=== PATIENT | female | born 1990 | race Caucasian/White ===

== ENCOUNTER 2021-04-26 23:04 | Emergency (ER) | payer MEDICARE ==
[2021-04-26] MEDS ORDERED: Take Home: Clindamycin HCl 150 MG Cap, 6 Cap Pack PO ONE (23:19)
[2021-04-26] MEDS ORDERED: Clindamycin HCl 150 MG Cap PO ONE (23:21)
--- NOTE | 2021-04-26 23:27 | EDM.PDOC ---
ED HPI GENERAL MEDICAL PROBLEM - General Chief Complaint: ENT Problem Stated Complaint: MOUTH Time Seen by Provider: 04/26/21 23:15 Source of Information: Reports: Patient History Limitations: Reports: No Limitations - History of Present Illness INITIAL COMMENTS - FREE TEXT/NARRATIVE: Patient presents to the ED for dental pain. She has poor dentition due to drug abuse and teeth grinding in the past. She states that a few months ago she sustained dental trauma to the left second molar and has had minimal problems with the tooth since. In the last week it has become painful, a swollen gum was noted a day or so ago and she " popped" the abscess. It did help with the swelling but the pain is intolerable. Taking tylenol, motrin, orajel, anebsol for this. Has not reached out to a dentist, but will next week. living locally with her boyfriend but from [place]. History of cancer in need for further work up for lung nodules. History of narcotic abuse. Does not want pain medications, no allergies to medicaitons - Related Data Home Meds: Home Meds Clindamycin HCl 300 mg PO TID 7 Days #21 capsule 04/26/21 [Rx] Past Medical History Respiratory History: Reports: Other (See Below) (lung nodules in need for oncologic work up) Oncologic (Cancer) History: Reports: Cervix, Ovarian - Past Surgical History Female Surgical History: Reports: Hysterectomy, Salpingo-Oophorectomy (bialteral) Social & Family History - Alcohol Use Alcohol Use Frequency: Rarely - Recreational Drug Use Recreational Drug Use: No Drug Use in Last 12 Months: No Other Recreational Drug Type: history of narcotic addiction ED ROS ENT - Review of Systems Review Of Systems: See Below Constitutional: Reports: No Symptoms. Denies: Fever, Chills, Fatigue HEENT: Reports: Dental Pain. Denies: Nose Pain, Rhinitis, Throat Pain, Throat Swelling, Vision Change Respiratory: Reports: No Symptoms. Denies: Shortness of Breath, Cough Cardiovascular: Reports: No Symptoms. Denies: Chest Pain, Dyspnea on Exertion Endocrine: Reports: No Symptoms GI/Abdominal: Reports: No Symptoms. Denies: Diarrhea, Nausea, Vomiting : Reports: No Symptoms. Denies: Other Musculoskeletal: Reports: No Symptoms. Denies: Neck Pain, Shoulder Pain Skin: Reports: No Symptoms Neurological: Reports: No Symptoms. Denies: Confusion, Dizziness, Headache ED EXAM, ENT - Physical Exam Exam: See Below Exam Limited By: No Limitations General Appearance: Alert, WD/WN, No Apparent Distress Eye Exam: Bilateral Eye: EOMI, Normal Inspection, PERRL Ears: Normal External Exam Nose: Normal Inspection, Normal Mucousa Mouth/Throat: Other (multiple dental caries, fillings and missing teeth. minimal decay noted. tooth in question left upper with dentec in it. no abscess noted. minimal left cheek swelling) Head: Atraumatic Neck: Normal Inspection. No: Lymphadenopathy (L), Lymphadenopathy (R) Respiratory/Chest: No Respiratory Distress, Lungs Clear Cardiovascular: Normal Peripheral Pulses, Regular Rate, Rhythm Course - Orders/Labs/Meds Orders: Active Orders 24 hr Category Date Time Status clindamycin HCL [Cleocin] Med 04/26/21 23:21 Once 300 mg PO ONETIME ONE Medication Orders Clindamycin HCl (Clindamycin Hcl 150 Mg Cap) 300 mg PO ONETIME ONE Stop: 04/26/21 23:22 Meds: Medications Generic Name Dose Route Start Last Admin Trade Name Freq PRN Reason Stop Dose Admin Clindamycin HCl 300 mg 04/26/21 23:21 Clindamycin Hcl 150 Mg Cap PO 04/26/21 23:22 ONETIME ONE Discontinued Medications Generic Name Dose Route Start Last Admin Trade Name Freq PRN Reason Stop Dose Admin Clindamycin HCl 1 packet 04/26/21 23:19 Take Home: Clindamycin Hcl 150 Mg Cap, 6 Cap Pack PO 04/26/21 23:20 ONETIME ONE - Re-Assessments/Exams Free Text/Narrative Re-Assessment/Exam: 04/26/21 23:26 discussed use of sensodyne for pain. limit topicals. she does not want pain medication due to past addiction. Will give po dose of clindamycin here , starter pack for tomorrow due to pharmacy being closed and prescription for rest. Will follow up in [place], no allergies, VSS 04/26/21 23:35 Departure - Departure Time of Disposition: 23:22 Disposition: Home, Self-Care 01 Condition: Fair Clinical Impression: Dental caries - Discharge Information *PRESCRIPTION DRUG MONITORING PROGRAM REVIEWED*: Yes *COPY OF PRESCRIPTION DRUG MONITORING REPORT IN PATIENT HERON: Not Applicable Prescriptions: Clindamycin HCl 300 mg PO TID 7 Days #21 capsule Instructions: Dental Caries, Adult Additional Instructions: Make appointment to follow up with dentist this next week. you were given a dose of clindamycin in the ED. You are given a short supply for tomorrow , two capsules three times a day and then fill prescription for rest of prescription. Use tylenol and motrin alternating for pain. Use sensodyne toothpaste on the tooth to help with pain. Limit the use of Oragel and Anbesol - My Orders Last 24 Hours: My Active Orders 04/26/21 23:21 clindamycin HCL [Cleocin] 300 mg PO ONETIME ONE - Assessment/Plan Last 24 Hours: My Active Orders 04/26/21 23:21 clindamycin HCL [Cleocin] 300 mg PO ONETIME ONE
== END 2021-04-26 23:28 | disposition home or self-care (01) ==
LOC: VM.ED 23:04
DX: K02.9 Dental caries, unspecified (principal)
CPT/HCPCS: 99282; A9270-GY

== ENCOUNTER 2021-07-10 12:19 | Emergency (ER) | payer MEDICARE ==
[2021-07-10] MEDS ORDERED: Amoxicillin/Clavulanate K 875-125 MG Tab PO ONE (12:41)
[2021-07-10] MEDS ORDERED: Take Home: traMADol 50 MG, 4 Tab Pack PO ONE (12:42)
[2021-07-10] MEDS ORDERED: Take Home: Amoxicillin/Clavulanate K 875-125 MG Tab, 2 Tab Pack PO ONE (12:44)
--- NOTE | 2021-07-10 12:46 | EDM.PDOC ---
ED HPI GENERAL MEDICAL PROBLEM - General Time Seen by Provider: 07/10/21 12:20 Source of Information: Reports: Patient History Limitations: Reports: No Limitations - History of Present Illness INITIAL COMMENTS - FREE TEXT/NARRATIVE: Emergency department today with complaints of swelling and a dental infection on the left upper aspect of her mouth. This patient has a longstanding history of dental caries. She has not seen a dentist for this. She was seen in the emergency department a couple of months ago with a dental infection in the same area. She was on clindamycin at this time with resolution. She notes that over the past couple of days she has had increased pain in the left upper aspect of the jaw as well as swelling. She has no difficulty breathing. No difficulty swallowing. No fever no chills. She has not contacted a dentist. - Related Data Allergies Allergy/AdvReac Type Severity Reaction Status Date / Time No Known Allergies Allergy Verified 07/10/21 13:02 Home Meds: Home Meds Amoxicillin/Potassium Clav [Augmentin 875-125 Tablet] 1 each PO BID #14 tablet 07/10/21 [Rx] Past Medical History Respiratory History: Reports: Other (See Below) (lung nodules in need for oncologic work up) Oncologic (Cancer) History: Reports: Cervix, Ovarian - Past Surgical History Female Surgical History: Reports: Hysterectomy, Salpingo-Oophorectomy (bialteral) ED ROS ENT - Review of Systems Review Of Systems: Comprehensive ROS is negative, except as noted in HPI. ED EXAM, ENT - Physical Exam Exam: See Below Exam Limited By: No Limitations General Appearance: Alert, WD/WN, No Apparent Distress Eye Exam: Bilateral Eye: EOMI, PERRL Ears: Normal External Exam, Normal TMs Nose: Normal Inspection Mouth/Throat: Dental Pain, Other (Tooth #12, 13, 14 are quite decayed black and rotten down to the gumline. There is no overt abscess area of induration or swelling of the gums in the oropharynx.). No: Dental Abcess, Drooling, Trismus Head: Facial Swelling (She has some facial swelling on the left upper aspect of her maxilla in the area of the medial zygomatic arch. No breaks in the skin. No palpable mass.) Neck: Normal Inspection. No: Lymphadenopathy (L), Lymphadenopathy (R) Respiratory/Chest: No Respiratory Distress Cardiovascular: Normal Peripheral Pulses Neurological: Alert, Oriented, CN II-XII Intact, No Motor/Sensory Deficits Psychiatric: Normal Affect, Normal Mood Skin: Warm, Dry, Intact, Normal Color, No Rash Course - Vital Signs Last Recorded V/S: Last Vital Signs Temp 98.8 F 07/10/21 12:25 Pulse 88 07/10/21 12:25 Resp 14 07/10/21 12:25 BP 123/89 07/10/21 12:25 Pulse Ox 98 07/10/21 12:25 - Orders/Labs/Meds Meds: Medications Discontinued Medications Generic Name Dose Route Start Last Admin Trade Name Freq PRN Reason Stop Dose Admin Amoxicillin/Clavulanate Potassium 1 tab 07/10/21 12:41 07/10/21 12:54 Amoxicillin/Clavulanate K 875-125 Mg Tab PO 07/10/21 12:42 1 tab ONETIME ONE Administration Amoxicillin/Clavulanate Potassium 1 packet 07/10/21 12:44 07/10/21 12:54 Take Home: Amoxicillin/Clavulanate K 875-125 Mg Tab, 2 Tab Pack PO 07/10/21 12:45 1 packet ONETIME ONE Administration Tramadol HCl 1 packet 07/10/21 12:42 07/10/21 12:55 Take Home: Tramadol 50 Mg, 4 Tab Pack PO 07/10/21 12:43 1 packet ONETIME ONE Administration - Re-Assessments/Exams Free Text/Narrative Re-Assessment/Exam: 07/10/21 16:21 The patient does not want an dental block. There is no area of abscess for drainage. She really needs to see a dentist as soon as possible. She will need these 3 teeth in the left upper aspect of her mouth removed to prevent further recurrent infection. We will place her on Augmentin 1 tab p.o. twice daily for the next 7 days. Starter pack given in the emergency department prescription to the pharmacy. Departure - Departure Time of Disposition: 12:42 Disposition: Home, Self-Care 01 Clinical Impression: Dental caries, Infected dental caries - Discharge Information *PRESCRIPTION DRUG MONITORING PROGRAM REVIEWED*: Not Applicable *COPY OF PRESCRIPTION DRUG MONITORING REPORT IN PATIENT HERON: Not Applicable Prescriptions: Amoxicillin/Potassium Clav [Augmentin 875-125 Tablet] 1 each PO BID #14 tablet Instructions: Dental Abscess, [id number], Dental Caries, Adult, [id number] Referrals: PCP,Not In Area [Primary Care Provider] - Forms: ED Department Discharge Additional Instructions: Tylenol and or Ibuprofen as needed for pain. Augmentin, 1 tablet twice daily for the next 7 days. First dose given in the ED starter pack sent home and [facility]. Heat or ice to the area of swelling which ever works best. SEE A DENTIST JEREMIAH. Tramadol start pack given in the ED. 1 tablet 3 times a day as needed for pain. Caution sedation. Return to the ED if new or worsening symptoms. Sepsis Event Note (ED) - Focused Exam Vital Signs: Vital Signs Temp Pulse Resp BP Pulse Ox 07/10/21 12:25 98.8 F 88 14 123/89 98
== END 2021-07-10 13:02 | disposition home or self-care (01) ==
LOC: VM.ED 12:19
DX: K04.7 Periapical abscess without sinus (principal); K02.9 Dental caries, unspecified
CPT/HCPCS: 99282; A9270

== ENCOUNTER 2022-03-25 22:07 | Emergency (ER) | payer MEDICARE ==
[2022-03-25 22:36] LABS: BARBITURATE SCREEN,URINE NEGATIVE (NEGATIVE); BENZODIAZEPINES SCREEN,URINE NEGATIVE (NEGATIVE); BUPRENORPHINE SCREEN,URINE NEGATIVE (NEGATIVE); METHAMPHETAMINE SCREEN, URINE POSITIVE (NEGATIVE); THC SCREEN,URINE 50 NG/ML POSITIVE (NEGATIVE)
[2022-03-25] MEDS: Take Home: Sulfamethoxazole/Trimethoprim 800-160 MG Tab, 2 Tab Pack PO ONE (23:22)
== END 2022-03-25 23:31 | disposition home or self-care (01) ==
LOC: VM.ED 22:07
DX: T81.40XA Infection following a procedure, unspecified, initial encounter (principal); S00.81XA Abrasion of other part of head, initial encounter; Y04.0XXA Assault by unarmed brawl or fight, initial encounter
CPT/HCPCS: 70450; 80305-QW; 81001; 87086; 99283; 99284; A9270-GY